=== PATIENT | female | born 1960 | race Caucasian/White ===

== ENCOUNTER 2017-09-08 17:53 | Inpatient (IN) | payer MEDICARE, OTHER ==
[2017-09-08] VITALS (10 sets, daily range): BP systolic 43–164; BP diastolic 15–117
[~2017-09-08] VITALS: Ht 195.6 cm; Wt 62.1 kg
--- NOTE | 2017-09-08 18:00 | NUR ---
AAOX3, BIB RA FROM [facility] FOR LOW O2 SAT, 70'S -80'S PER STAFF C/O CHEST PAIN UPON ARRIVAL TO ER. RR IS EVEN AND UNLABORED WITH NAD NOTED. SKIN IS WARM AND DRY. AWAITING MD FOR EVAL. PLACED ON THE MONITOR. WILL CONTINUOUSLY MONITOR THE PATIENT,
[2017-09-08] MEDS ORDERED: ASPIRIN 81 MG TAB.CHEW ONE (18:20)
[2017-09-08] MEDS ORDERED: ASPIRIN 81 MG TAB.CHEW PO ONE (18:30)
[2017-09-08 18:38] LABS: BASOPHILS % (AUTO) 0.3 % (0.0-2.0); EOSINOPHILS % (AUTO) 0.3 % (0.0-6.0); HEMATOCRIT 29 % (33-45); HEMOGLOBIN 9.8 g/dL (11.5-14.8); LYMPHOCYTES # (AUTO) 1.5 /CMM (0.8-4.8); LYMPHOCYTES % (AUTO) 14.9 % (20.0-44.0); MEAN CORPUSCULAR HEMOGLOBIN 30 PG (26.0-33.0); MEAN CORPUSCULAR HGB CONC 34 g/dl (31.0-36.0); MEAN CORPUSCULAR VOLUME 87 fL (82-100); MONOCYTES % (AUTO) 10.1 % (2.0-12.0); NEUTROPHILS # (AUTO) 7.7 /CMM (1.8-8.9); NEUTROPHILS % (AUTO) 74.4 % (43.0-81.0); PLATELET COUNT (AUTO) 480 /CMM (150-450); RED BLOOD CELL COUNT(AUTO) 3.33 MIL/uL (4.0-5.2); WHITE BLOOD COUNT (AUTO) 10.2 K/uL (4.3-11.0)
[2017-09-08 18:53] LABS: CREATININE 0.7 mg/dL (0.6-1.3); POTASSIUM 5.3 mmol/L (3.5-5.1)
[2017-09-08 18:58] LABS: INR 1.15 (0.87-1.13)
[2017-09-08 19:00] LABS: TROPONIN I 0.076 ng/mL (0.00-0.056)
[2017-09-08] MEDS ORDERED: IV NS 0.9% 1,000 ML BAG IV ONE (19:00)
[2017-09-08 19:10] LABS: ALBUMIN 2.6 g/dL (3.4-5.0); BILIRUBIN,TOTAL 0.4 mg/dL (0.2-1.0); TOTAL PROTEIN, SERUM 6.2 g/dL (6.4-8.2)
[2017-09-08 19:27] LABS: BILIRUBIN,DIRECT 0.1 mg/dL (0.0-0.2)
--- NOTE | 2017-09-08 19:30 | NUR ---
REPORT REC'D FROM MARIBELL RAMOS FOR [facility].
--- NOTE | 2017-09-08 19:30 | NUR ---
PT HAS 17 PAIN PATCHES ON LT HIP AND BACK OF THIGH.
--- NOTE | 2017-09-08 19:40 | NUR ---
PT ADJUSTED IN BED.
[2017-09-08 19:45] LABS: BAND % (MANUAL) 4 % (0.0-5.0); LYMPHOCYTES % (MANUAL) 15 % (16-48); MONOCYTES % (MANUAL) 5 % (0-11.0); NEUTROPHILS % (MANUAL) 76 (42-76)
--- NOTE | 2017-09-08 19:50 | NUR ---
PT'S RAC IV INFILTRATED. NEW IV STARTED X2. 20G X2 LT HAND.
--- NOTE | 2017-09-08 20:05 | NUR ---
PT REC'D A CUP OF WATER AND TOLERATED PO WELL.
--- NOTE | 2017-09-08 20:30 | NUR ---
PT WAS ADJUSTED IN BED. PILLOWS ADJUSTED.
[2017-09-08] MEDS ORDERED: FEE EMEERGENCY 1 MIN EA MC ONE (21:00)
[2017-09-08] MEDS ORDERED: SODIUM BICARBONATE SYR 50 MEQ/50 ML DISP.SYRIN IV ONE (21:00)
[2017-09-08] MEDS ORDERED: EPINEPHRINE (1:10,000) SYRINGE 1 MG/10 ML DISP.SYRIN IVP ONE (21:00)
[2017-09-08] MEDS ORDERED: DILTIAZEM HCL 25 MG IV ONE ×2 (21:05→21:45)
--- NOTE | 2017-09-08 21:06 | NUR ---
PAGED DR SULLIVAN (ON-CALL FOR [facility])
[2017-09-08] MEDS ORDERED: DILTIAZEM HCL 25 MG IV IVP ONE (21:30)
[2017-09-08] MEDS ORDERED: AZITHROMYCIN 500 MG in IV D5W 250 ML IV ONE (21:30)
[2017-09-08] MEDS ORDERED: AZITHROMYCIN 500 MG VIAL ONE (21:43)
[2017-09-08] MEDS ORDERED: DILTIAZEM HCL 25 MG IV IV ONE (22:00)
--- NOTE | 2017-09-08 22:13 | NUR ---
PT WAS CLEANED AND NEW DIAPER APPLIED. PT IS ON THE MONITOR & CONTINUOUS PULSE OX.
--- NOTE | 2017-09-08 22:15 | NUR ---
PT TRANSPORTED TO [facility] VIA GURNEY BY EMT AND MYSELF. PT IS AA&O X3. PT IS RESPONDING TO ALL QUESTIONS. VSS. PT IS SATURATING AT 96% ON 3L O2 VIA NC. PT BECAME LETHARGIC ON THE GURNEY OUTSIDE PT'S ROOM. PT WAS NOT RESPONDING TO PAINFUL STIMULI. [facility] RESPONSE CALLED AND PT TRANFERRED TO 119-1. PT IS NOT BREATHING WELL. BAGGING STARTED BY GILMA DARBY. CRASH CART IN ROOM AND PADS PLACED ON THE PT AND LEADS CONNECTED TO THE PT. MOLINA PORTILLO DNP ARRIVED. NURSING SUP ARRIVED.
[2017-09-08] MEDS ORDERED: IV NS 0.9% 1,000 ML IV STA (22:50)
--- NOTE | 2017-09-08 22:55 | NUR ---
ICU/RN- RECEIVED PT. FROM TD PER ACLS PROTOCOL S/P CODE BLUE DUE TO CP ARREST. ON CONTINUOUS BAGGING VIA ETT BY RT, ON CONTINUOUS EKG MONITORING. IMMEDIATELY HOOKED UP TO [facility] PER ETT AND BEDSIDE EKG MONITORING , Hilda PORTILLO DNP AT THE BEDSIDE, MONITORING PT. CLOSELY. PT. IS CRITICALLY ILL. CODE STATUS "FULL CODE."
[2017-09-08] MEDS ORDERED: PROPOFOL 100 ML ONE (22:57)
[2017-09-08] MEDS ORDERED: FUROSEMIDE 20 MG/2 ML VIAL IV STA (22:59)
[2017-09-08] MEDS ORDERED: PROPOFOL 10MG/ML 50ML 50 ML IV PRN (23:00)
[2017-09-08] MEDS ORDERED: NOREPINEPHRINE 8 MG in IV D5W 500 ML IV PRN (23:00)
[2017-09-08] MEDS ORDERED: NOREPINEPHRINE 4 MG/4 ML AMPUL IV ONE (23:05)
--- NOTE | 2017-09-08 23:09 | NUR ---
MARIBELL CHANG PT WAS BROUGHT TO [facility] BY KRYSTAL REYNA, PT WAS UNRESPONSIVE ON ARRIVAL. [facility] RESPONSE WAS CALLED. REPORT WAS GIVEN EARLIER BY MARIBELL RICE. Addendum: 09/08/17 at 2351 by KULWINDER HARDWICK RN MARIBELL CHANG CODE BLUE WAS CALLED AND PT WAS INTUBATED. PT WAS TRANSFERRED TO ICU BY ACLS MONITOR.
--- NOTE | 2017-09-08 23:16 | NUR ---
ICU/RN- Hilda PORTILLO AT THE BEDSIDE, JUST INSERTED A FEMORAL AMENA ON THE RIGHT, NOTED PT. EKG PEA E/ HR ON THE 40'S, CODE BLUE WAS CALLED, ACLS INITIATED. W/ Hilda PORTILLO DNP IN ATTENDANCE.
--- NOTE | 2017-09-08 23:18 | NUR ---
ICU/RN- UNABLE TO START PROPOFOL, PT, CODED AND WAS IN PEA W/ HR 0N THE 40'S
[2017-09-08] MEDS ORDERED: AMIODARONE 150 MG/3 ML VIAL IV ONE ×2 (23:19→23:23)
[2017-09-08] MEDS ORDERED: HEPARIN INFUSION/D5W 500 ML IV PRN (23:30)
--- NOTE | 2017-09-08 23:30 | NUR ---
ICU/RN- ATTEMPTED TO GET HOLD OF THE BROTHER JAMIE BY PHONE, DURING ONGOING CODE BLUE, BUT TO NO AVAIL, PHONE JUST KEEPS RINGING. WILL RETRY TO CONTACT AT A LATER TIME.
[2017-09-08 23:35] LABS: BASOPHILS % (AUTO) 0.1 % (0.0-2.0); EOSINOPHILS % (AUTO) 0.1 % (0.0-6.0); HEMATOCRIT 24 % (33-45); HEMOGLOBIN 7.9 g/dL (11.5-14.8); LYMPHOCYTES # (AUTO) 2.1 /CMM (0.8-4.8); MEAN CORPUSCULAR HEMOGLOBIN 30 PG (26.0-33.0); MEAN CORPUSCULAR HGB CONC 33 g/dl (31.0-36.0); MEAN CORPUSCULAR VOLUME 90 fL (82-100); MONOCYTES % (AUTO) 6.8 % (2.0-12.0); NEUTROPHILS # (AUTO) 11.8 /CMM (1.8-8.9); PLATELET COUNT (AUTO) 246 /CMM (150-450); RDW COEFFICIENT OF VARIATION 14.5 (11.5-15.0); RED BLOOD CELL COUNT(AUTO) 2.68 MIL/uL (4.0-5.2)
[2017-09-08 23:46] LABS: CALCIUM, SERUM 6.9 mg/dL (8.5-10.1); CREATININE 0.7 mg/dL (0.6-1.3); POTASSIUM 5.9 mmol/L (3.5-5.1)
[2017-09-08 23:52] LABS: BILIRUBIN,TOTAL 0.4 mg/dL (0.2-1.0); MAGNESIUM 1.7 mg/dL (1.8-2.4); PHOSPHORUS 5.6 mg/dL (2.5-4.9); TOTAL PROTEIN, SERUM 3.5 g/dL (6.4-8.2)
[2017-09-08 23:56] LABS: ALBUMIN 1.4 g/dL (3.4-5.0)
--- NOTE | 2017-09-09 | NUR ---
SUPERINTENDENT MECHANICAL RCD PT S/P RESP ARREST; PT NON RESPONSIVE; ON AMIO DRIP @ 1 MG/HR; ON LEVOPHED MAX DOSE; ON DOPAMINE MAX DOSE. UNABLE TO REACH PTS FAMILY AT THIS TIME. CALL PLACED TO PRIMARY.
--- NOTE | 2017-09-09 00:10 | NUR ---
ICU/RN- SPOKE TO DR. Robin SULLIVAN REGARDING PT. STATUS AND THE PAST EVENTS THAT OCCURRED ON PT. S/P CODE BLUE X 2(ONE IN TD AND ONE IN ICU FOR PEA), W/ Hilda PORTILLO DNP IN ATTENDANCE. ALSO NOTIFIED SAME MD OF Hilda PORTILLO DNP ORDER OF PT. A DNR CODE STATUS. DR. Rhea SULLIVAN IN AGREEMENT WITH Hilda PORTILLO DNP, ORDER.
[2017-09-09 00:13] VITALS: BP 40/20
[2017-09-09 00:18] VITALS: BP 37/19
[2017-09-09 00:21] LABS: BAND % (MANUAL) 5 % (0.0-5.0); LYMPHOCYTES % (MANUAL) 15 % (16-48); METAMYELOCYTES % 2 % (0-0); MONOCYTES % (MANUAL) 5 % (0-11.0); NEUTROPHILS % (MANUAL) 73 (42-76)
[2017-09-09 00:23] VITALS: BP 37/19
--- NOTE | 2017-09-09 00:28 | NUR ---
BEADWORKER NS BOLUS AND AZITHROMYCIN ALREADY ADMINISTERED.
[2017-09-09] MEDS ORDERED: DOPamine 400 MG in IV D5W 250 ML IV PRN (00:30)
[2017-09-09 00:47] VITALS: BP 31/16
[2017-09-09] MEDS ORDERED: AMIODARONE 900 MG in IV D5W 482 ML IV PRN (01:00)
[2017-09-09 01:03] VITALS: BP 27/13
[2017-09-09] MEDS ORDERED: AMIODARONE 150 MG/3 ML VIAL IV ONE (01:07)
[2017-09-09] MEDS ORDERED: SODIUM BICARBONATE SYR 50 MEQ/50 ML DISP.SYRIN IV ONE (01:07)
[2017-09-09] MEDS ORDERED: CALCIUM CHLORIDE 1,000 MG/10 ML DISP.SYRIN IV ONE (01:07)
[2017-09-09] MEDS ORDERED: EPINEPHRINE (1:10,000) SYRINGE 1 MG/10 ML DISP.SYRIN IV ONE (01:07)
[2017-09-09] MEDS ORDERED: FEE EMEERGENCY 1 MIN EA MC ONE (01:07)
[2017-09-09 01:08] VITALS: BP 0/0
--- NOTE | 2017-09-09 01:08 | NUR ---
ICU/RN- PRONOUNCEMENT OF : pT. CODE STATUS"DO NOT RESUSCITATE". PT. IS UNRESPONSIVE TO ANY FORM OF STIMULI. PUPILS ARE FIXED AND DILATED. RESPIRATIONS ARE ABSENT. PERIPHERAL PULSES ARE ABSENT. EKG ASYSTOLE X2 LEADS. NO SIGNS OF LIFE. PT. PRONOUNCED . BY: MIKKI LANDIN RN
--- NOTE | 2017-09-09 01:08 | NUR ---
BUSINESS SUPPORT ASSOCIATE PT NOTED TO BE ASYSTOLE ON MONITOR; UNABLE READ NIBP; AMENA 20/13; NO PULSE NOTED. PT DNR STATUS. PRONOUNCED BY AIRFRAME DESIGN ENGINEER.
--- NOTE | 2017-09-09 01:25 | NUR ---
ICU/RN- ABLE TO TALK TO BROTHCHARLES AYALA(TEL. [phone]) AND NOTIFIED SAME OF PT. STATUS AND EXPIRATION. HAS NO ARRANGEMENT AT THIS TIME. WILL KEEP BODY AT [facility] FOR NOW.
--- NOTE | 2017-09-09 01:40 | NUR ---
MANAGER DIVISION S/W [facility] REF #[id number]. PT POSSIBLE TISSUE DONATION. EYE CARE INSTRUCTIONS RECEIVED.
--- NOTE | 2017-09-09 01:45 | NUR ---
SENIOR QUALITY ASSURANCE ANALYST S/W PRODUCTIVITY ENGINEER ; RELEASE BODY.
[2017-09-09] MEDS ORDERED: PROPOFOL 100 ML IV PRN (03:00)
== END 2017-09-09 01:08 | disposition expired ==
LOC: ER 18:03 → TELE-TD 21:35 → ICU 22:44
PROVIDERS: ADMIT Internal Medicine Nephrology; ATTEND Internal Medicine Nephrology
PROC: 5A1935Z Respiratory Ventilation, Less than 24 Consecutive Hours (ICD-10-PCS; principal; 2017-09-09)
PROC: 0BH17EZ Insertion of Endotracheal Airway into Trachea, Via Natural or Artificial Opening (ICD-10-PCS; 2017-09-09)
PROC: 5A2204Z Restoration of Cardiac Rhythm, Single (ICD-10-PCS; 2017-09-09)
PROC: 0JHM3XZ Insertion of Tunneled Vascular Access Device into Left Upper Leg Subcutaneous Tissue and Fascia, Percutaneous Approach (ICD-10-PCS; 2017-09-09)
PROC: 06HN33Z Insertion of Infusion Device into Left Femoral Vein, Percutaneous Approach (ICD-10-PCS; 2017-09-09)
PROC: B54CZZA Ultrasonography of Left Lower Extremity Veins, Guidance (ICD-10-PCS; 2017-09-09)
PROC: 04HK33Z Insertion of Infusion Device into Right Femoral Artery, Percutaneous Approach (ICD-10-PCS; 2017-09-09)
DX: I21.4 Non-ST elevation (NSTEMI) myocardial infarction (principal); M32.9 Systemic lupus erythematosus, unspecified; Z95.2 Presence of prosthetic heart valve; E03.9 Hypothyroidism, unspecified; I25.10 Atherosclerotic heart disease of native coronary artery without angina pectoris; I48.91 Unspecified atrial fibrillation; I09.9 Rheumatic heart disease, unspecified; I71.4 Abdominal aortic aneurysm, without rupture; Z88.6 Allergy status to analgesic agent; Z88.1 Allergy status to other antibiotic agents; Z88.0 Allergy status to penicillin; Z88.2 Allergy status to sulfonamides; Z88.8 Allergy status to other drugs, medicaments and biological substances; I10 Essential (primary) hypertension
CPT/HCPCS: 36415; 71045-TC; 80048-TC; 80053-TC; 80076-TC; 82962-TC; 83690-TC; 83735-TC; 83880; 84100-TC; 84484-TC; 85025-TC; 85730-TC; 87081-TC; 92950-TC; 94002-TC; A4606; C1751; J0171; J0282; J0456; J3490; J7030; J7040; J7060; Z7610